=== PATIENT | male | born 1960 | race Hispanic/Latino ===

== ENCOUNTER → 2019-12-15 | Day surgery (SDC) | payer OTHER ==
[~2019-12-15] VITALS: Ht 167.6 cm; Wt 86.2 kg
[~2019-12-15] MED LIST: ACETAMINOPHEN/CODEINE 300MG - 30MG TAB ONE; BUPIVACAINE HCL 0.5% INJ 30 ML VIAL INJ ONE; CEFAZOLIN SOD 1 GM/NS 50ML 50 ML IV ONE; DEXAMETHASONE SOD PHOS INJ 4 MG/ML VIAL ONE; FENTANYL CITRATE/PF 100MCG/2 ML INJ ONE; KETOROLAC TROMETHAMINE 30 MG/ML VIAL ONE; LIDOCAINE HCL 2% LOCAL INJ 5 ML SDV VIAL INJ ONE; LIPITOR20 MG PO; MEPERIDINE HCL INJ 25 MG/ML VIAL ONE; MIDAZOLAM HCL 2 MG/2 ML VIAL ONE; ONDANSETRON HCL INJ 2MG/ML 2ML 2 MG/ML VIAL ONE; PROPOFOL IV EMULSION 10 MG/ML 20 ML VIAL ONE; SEVOFLURANE INHAL SOLN 250 ML PEN BTL ONE
--- NOTE | 2019-12-15 07:10 | NUR ---
SPIRITUAL CARE - Pre-Surgery Assessment: Pt in bed. Pt's daughter at bedside. Pt reported supportive attention from family and friends. Intervention: Tenter Frame Operator provided pastoral presence, hospitality, and sympathetic listening. Acquainted pt with availability of base brander while hospitalized. Outcome: Pt expressed appreciation for visit. No need for follow up indicated at this time. [facility] Department O: [phone]
[2019-12-15 10:05] VITALS: BP 128/89
--- NOTE | 2019-12-15 19:26 | Operative Report ---
DATE OF PROCEDURE: 12/15/2019 SURGEON: Manny Osuna MD INSPECTOR RAW QUARTZ: Dixon Porter, certified PA. PREOPERATIVE DIAGNOSIS: Left ankle fracture. POSTOPERATIVE DIAGNOSIS: Left ankle fracture. PROCEDURE: Open reduction and internal fixation left ankle. INDICATIONS: The patient is a 59-year-old gentleman, who has an acute left ankle fracture. He has a displaced and rotated distal fibula. The findings and options have been discussed. We recommend open reduction with internal fixation. The risks and benefits were explained. All of his questions were answered. He stated he understood and wished to proceed. Of incidental note, the patient was tested COVID positive in his preoperative lab work. He had been symptomatic about 3 months ago. They continued positive results and was not considered a contraindication to fixing his acute fracture. PROCEDURE IN DETAIL: The patient was brought to the operating room and placed under general anesthetic. He received prophylactic antibiotics in the holding area. His left lower extremity was prepped and draped in a sterile manner. A preoperative time-out was performed. The extremity was exsanguinated and a proximal tourniquet was inflated to 300 mmHg. A lateral incision was made. The fracture site was carefully exposed and reduced with a lobster claw reduction clamp. A 6-hole one-third semitubular plate was fixed into the distal fibula. Proximal compression cortical screws were placed. Distal locking screws were placed. Intraoperative x-rays confirmed an anatomic reduction and good positioning of the hardware. The wound was irrigated and closed. Subcuticular Vicryl was used the deep soft tissue. The skin was closed with denise. A sterile bandage and splint were applied. The patient was extubated and transported to the recovery room in stable condition. There was no blood loss and all needle and sponge counts were correct. Manny Osuna MD DR/KAROL /[id number]
== END | disposition home or self-care (01) ==
LOC: OR 06:01
PROVIDERS: ATTEND Specialist
DX: S82.62XA Displaced fracture of lateral malleolus of left fibula, initial encounter for closed fracture (principal); Z87.891 Personal history of nicotine dependence; Z01.810 Encounter for preprocedural cardiovascular examination; Z01.812 Encounter for preprocedural laboratory examination; U07.1 COVID-19
CPT/HCPCS: 27792; 93005; C1713 ×5; J0690; J1100; J1885; J2001; J2175; J2250; J2405; J2704; J3010; U0002; 76000

== ENCOUNTER → 2020-03-28 | Outpatient (RCR) | payer OTHER ==
[~2020-03-28] MED LIST changes: -ACETAMINOPHEN/CODEINE 300MG - 30MG TAB ONE; -BUPIVACAINE HCL 0.5% INJ 30 ML VIAL INJ ONE; -CEFAZOLIN SOD 1 GM/NS 50ML 50 ML IV ONE; -DEXAMETHASONE SOD PHOS INJ 4 MG/ML VIAL ONE; -FENTANYL CITRATE/PF 100MCG/2 ML INJ ONE; -KETOROLAC TROMETHAMINE 30 MG/ML VIAL ONE; -LIDOCAINE HCL 2% LOCAL INJ 5 ML SDV VIAL INJ ONE; -MEPERIDINE HCL INJ 25 MG/ML VIAL ONE; -MIDAZOLAM HCL 2 MG/2 ML VIAL ONE; -ONDANSETRON HCL INJ 2MG/ML 2ML 2 MG/ML VIAL ONE; -PROPOFOL IV EMULSION 10 MG/ML 20 ML VIAL ONE; -SEVOFLURANE INHAL SOLN 250 ML PEN BTL ONE
== END ==
LOC: PT 02-29 13:26
PROVIDERS: ATTEND Specialist
DX: S82.62XD Displaced fracture of lateral malleolus of left fibula, subsequent encounter for closed fracture with routine healing (principal); Z47.89 Encounter for other orthopedic aftercare
CPT/HCPCS: 97139

== ENCOUNTER 2020-04-01 10:00 | Outpatient (RCR) | payer OTHER | END 2020-04-28 | LOC: PT 10:00 | PROVIDERS: ATTEND Specialist | DX: Z47.89 Encounter for other orthopedic aftercare (principal); S82.62XD Displaced fracture of lateral malleolus of left fibula, subsequent encounter for closed fracture with routine healing ==